=== PATIENT | female | born 1980 ===

== ENCOUNTER 2021-08-22 06:42 | Day surgery (SDC) | payer MEDICAID ==
[~2021-08-22 06:42] MED LIST: Lactated Ringers 1,000 ML IV SCH; Lidocaine 1%/Sod Bicarbonate in NS 8.4% 1 ML Syringe IDERM PRN; Sodium Chloride 0.9% 10 ML Syringe FLUSH PRN; Sodium Chloride 0.9% 10 ML Syringe FLUSH SCH
[2021-08-22] MEDS ORDERED: Propofol 200 MG/20 ML SDV ONE (07:28)
[2021-08-22] MEDS ORDERED: Dexamethasone 4 MG/ML 5 ML MDV ONE (07:29)
[2021-08-22] MEDS ORDERED: fentaNYL 250 MCG/5 ML SDV ONE (07:29)
[2021-08-22] MEDS ORDERED: Midazolam 1 MG/ML 2 ML SDV ONE (07:29)
[2021-08-22] MEDS ORDERED: Rocuronium 50 MG/5 ML Vial ONE (07:29)
[2021-08-22] MEDS ORDERED: diphenhydrAMINE 50 MG/ML SDV ONE (07:29)
[2021-08-22] MEDS ORDERED: Ketorolac 30 MG/ML SDV ONE (07:29)
[2021-08-22] MEDS ORDERED: Lidocaine 1% 5 ML VIAL ONE (07:29)
[2021-08-22] MEDS ORDERED: Ondansetron 4 MG/2 ML SDV ONE (07:29)
[2021-08-22] MEDS ORDERED: Sodium Chloride 0.9% 50 ML SDV ONE (07:45)
[2021-08-22] MEDS ORDERED: Bupivacaine 0.5% 30 ML SDV ONE (07:46)
[2021-08-22] MEDS ORDERED: Bupivacaine 0.25%/EPINEPHrine 1:200,000 30 ML SDV ONE (07:46)
[2021-08-22] MEDS ORDERED: ceFAZolin 1 GM Vial ONE (08:00)
[2021-08-22] MEDS ORDERED: Lidocaine 1% with EPINEPHrine 1:100,000 20 ML MDV ONE (08:21)
[2021-08-22] MEDS ORDERED: Sodium Chloride 0.9% 100 ML ONE (08:26)
[2021-08-22] MEDS ORDERED: Dexmedetomidine 200 MCG/2 ML SDV ONE (08:26)
[2021-08-22] MEDS ORDERED: Ketamine 500 mg/10 ML MDV ONE (08:32)
[2021-08-22] MEDS ORDERED: Lactated Ringers 1,000 ML ONE (08:51)
[2021-08-22] MEDS ORDERED: Acetaminophen/oxyCODONE 325-5 MG Tab PO PRN (09:07)
[2021-08-22] MEDS ORDERED: Ondansetron 4 MG/2 ML SDV IVPUSH PRN ×2 (09:07→09:19)
[2021-08-22] MEDS ORDERED: HYDROmorphone 0.5 MG/0.5 ML Syringe IVPUSH PRN (09:19)
[2021-08-22] MEDS ORDERED: fentaNYL 100 MCG/2 ML SDV IVPUSH PRN (09:19)
[2021-08-22] MEDS ORDERED: Acetaminophen/oxyCODONE 325-5 MG Tab PO ONE (09:30)
[2021-08-22] MEDS ORDERED: Ketorolac 30 MG/ML SDV IVPUSH SCH (14:00)
[2021-08-22] MEDS ORDERED: Ibuprofen 600 MG Tab PO PRN (20:00)
== END 2021-08-22 12:25 | disposition home or self-care (01) ==
LOC: JD.SDS 06:42
PROVIDERS: ATTEND Obstetrics & Gynecology
DX: N80.0 Endometriosis of uterus (principal); D27.0 Benign neoplasm of right ovary; N83.8 Other noninflammatory disorders of ovary, fallopian tube and broad ligament; D25.9 Leiomyoma of uterus, unspecified; N81.6 Rectocele; N81.10 Cystocele, unspecified; K21.9 Gastro-esophageal reflux disease without esophagitis; Z87.891 Personal history of nicotine dependence; Z98.891 History of uterine scar from previous surgery; Z79.899 Other long term (current) drug therapy
CPT/HCPCS: 58262; A9270; J0690; J1100; J1200; J1885; J2250; J2405; J2704; J2710; J3010; J3490; J7120; 00944